=== PATIENT | female | born 1970 | race Caucasian/White ===

== ENCOUNTER 2021-12-27 17:47 | Inpatient (IN) | payer OTHER ==
[2021-12-27 19:17] VITALS: BMI 27.8
[2021-12-27] MEDS ORDERED: NICOTINE POLACRILEX 2 MG GUM BUC PRN (21:20)
[2021-12-27] MEDS ORDERED: MENTHOL/PHENOL 1 EACH UD MM PRN (21:20)
[2021-12-27] MEDS ORDERED: BISMUTH SUBSALICYLATE 524 MG/30 ML PO PRN (21:20)
[2021-12-27] MEDS ORDERED: ONDANSETRON *ODT* 4 MG TABLET SL PRN (21:20)
[2021-12-27] MEDS ORDERED: guaiFENesin 200 MG/10 ML 10 ML UNIT-DOSE CUPS PO PRN (21:20)
[2021-12-27] MEDS ORDERED: MAGNESIUM HYDROX 2400MG/30ML ORAL SUSPENSION 30 ML CUP PO PRN (21:20)
[2021-12-27] MEDS ORDERED: IBUPROFEN 400 MG TABLET (FP) PO PRN (21:20)
[2021-12-27] MEDS ORDERED: ACETAMINOPHEN 325 MG TABLET (FP) PO PRN ×2 (21:20)
[2021-12-27] MEDS ORDERED: MAGNESIUM CITRATE 300 ML BOTTLE PO PRN (21:20)
[2021-12-27] MEDS ORDERED: MAG HYDROX/AL HYDROX/SIMETH 30 ML UNIT-DOSE CUP PO PRN (21:20)
[2021-12-27] MEDS ORDERED: NICOTINE 10 MG CARTRIDGE (INHALER) IH PRN (21:20)
[2021-12-28] MEDS ORDERED: diazePAM 5 MG TABLET ONE (01:42)
[2021-12-28] MEDS: THIAMINE HCL 100 MG TABLET (FP) PO SCH ×2 (01:46→22:59)
[2021-12-28] MEDS: diazePAM 5 MG TABLET PO SCH ×5 (01:46→22:59)
[2021-12-28] MEDS: METHOCARBAMOL 500 MG TABLET PO PRN (02:25)
[2021-12-28] MEDS ORDERED: methaDONE HCL 40 MG DISPERSABLE TABLET PO ONE (09:16)
[2021-12-28] MEDS ORDERED: cloNIDine HCL 0.1 MG TABLET PO PRN (09:25)
[2021-12-28 10:15] LABS: HEMOGLOBIN 11.3 GM/dL (10.7-15.3); MCH 23.8 pg (25.7-33.7); MCHC 31.3 g/dl (32.0-36.0); MEAN PLT VOLUME 8.8 fl (7.5-11.1); PLATELET COUNT 224 10^3/uL (134-434); RBC 4.74 M/mm3 (3.60-5.2); RDW 15.3 % (11.6-15.6); WHITE BLOOD COUNT 6.9 K/mm3 (4.0-10.0)
[2021-12-28] MEDS: PRENATAL VITAMINS W/ FOLIC ACID TABLET (FP) PO SCH (10:21)
[2021-12-28 10:22] LABS: ALBUMIN 3.5 g/dl (3.4-5.0); BLOOD UREA NITROGEN 12.6 mg/dL (7-18)
[2021-12-28 10:25] LABS: CREATININE 0.8 mg/dL (0.55-1.3)
[2021-12-28 10:27] LABS: BILIRUBIN,TOTAL 0.3 mg/dL (0.2-1); TOT PROT 7.1 g/dl (6.4-8.2)
[2021-12-28] MEDS ORDERED: FLU VACC QS2021-22(6MOS UP)/PF 60 MCG/0.5 ML SYRINGE IM ONE (12:00)
[2021-12-28] MEDS: hydrOXYzine PAMOATE 25 MG CAPSULE (FP) PO PRN (18:17)
[2021-12-28] MEDS: MELATONIN 5 MG TABLETS PO PRN (22:59)
[2021-12-29] MEDS: diazePAM 5 MG TABLET PO SCH ×3 (06:40→22:46)
[2021-12-29] MEDS: methaDONE HCL 40 MG DISPERSABLE TABLET PO SCH (06:40)
[2021-12-29] MEDS: diazePAM 5 MG TABLET PO PRN (10:23)
[2021-12-29] MEDS: PRENATAL VITAMINS W/ FOLIC ACID TABLET (FP) PO SCH (10:23)
[2021-12-29] MEDS: THIAMINE HCL 100 MG TABLET (FP) PO SCH (22:46)
[2021-12-29] MEDS: MELATONIN 5 MG TABLETS PO PRN (22:46)
[2021-12-30] MEDS: METHOCARBAMOL 500 MG TABLET PO PRN (00:04)
[2021-12-30 06:07] LABS: SARS-CoV-2 NAA Not Detected (Not Detected)
[2021-12-30] MEDS: methaDONE HCL 40 MG DISPERSABLE TABLET PO SCH (06:46)
[2021-12-30] MEDS: diazePAM 5 MG TABLET PO SCH ×2 (06:46→17:46)
[2021-12-30] MEDS: PRENATAL VITAMINS W/ FOLIC ACID TABLET (FP) PO SCH (10:47)
[2021-12-30] MEDS: diazePAM 5 MG TABLET PO PRN (11:05)
[2021-12-30] MEDS: hydrOXYzine PAMOATE 25 MG CAPSULE (FP) PO PRN (17:47)
[2021-12-30] MEDS: THIAMINE HCL 100 MG TABLET (FP) PO SCH (22:24)
[2021-12-31] MEDS ORDERED: diazePAM 5 MG TABLET PO ONE (06:00)
[2021-12-31] MEDS: methaDONE HCL 40 MG DISPERSABLE TABLET PO SCH (06:43)
[2021-12-31 10:00] VITALS: BP 139/92; PULSE 87; TEMP 97.1
[2021-12-31] MEDS: PRENATAL VITAMINS W/ FOLIC ACID TABLET (FP) PO SCH (11:20)
[2021-12-31 14:11] LABS: SARS-CoV-2 NAA Not Detected (Not Detected)
== END 2021-12-31 09:44 | disposition home or self-care (01) | DRG 773 ==
LOC: YASAS 17:47 → Y3N 23:19
PROVIDERS: ADMIT Allergy & Immunology; ATTEND Allergy & Immunology
PROC: HZ2ZZZZ Detoxification Services for Substance Abuse Treatment (ICD-10-PCS; principal; 2021-12-27)
DX: F10.230 Alcohol dependence with withdrawal, uncomplicated (principal); F11.20 Opioid dependence, uncomplicated; F14.20 Cocaine dependence, uncomplicated; F17.210 Nicotine dependence, cigarettes, uncomplicated; I10 Essential (primary) hypertension; J45.909 Unspecified asthma, uncomplicated
CPT/HCPCS: 36415; 80053; 85027; 86780; C9803; J0735; U0003; U0005

== ENCOUNTER 2022-01-13 10:50 | Inpatient (IN) | payer OTHER ==
[2022-01-13] MEDS ORDERED: chlordiazePOXIDE HCL 25 MG CAPSULE PO PRN (11:29)
[2022-01-13] MEDS ORDERED: MENTHOL/PHENOL 1 EACH UD MM PRN (11:29)
[2022-01-13] MEDS ORDERED: NICOTINE 10 MG CARTRIDGE (INHALER) IH PRN (11:29)
[2022-01-13] MEDS ORDERED: ACETAMINOPHEN 325 MG TABLET (FP) PO PRN ×2 (11:29)
[2022-01-13] MEDS ORDERED: LOPERAMIDE HCL 2 MG CAPSULE PO PRN (11:29)
[2022-01-13] MEDS ORDERED: MAG HYDROX/AL HYDROX/SIMETH 30 ML UNIT-DOSE CUP PO PRN (11:29)
[2022-01-13] MEDS ORDERED: MAGNESIUM HYDROX 2400MG/30ML ORAL SUSPENSION 30 ML CUP PO PRN (11:29)
[2022-01-13] MEDS ORDERED: MAGNESIUM CITRATE 300 ML BOTTLE PO PRN (11:29)
[2022-01-13] MEDS ORDERED: ONDANSETRON *ODT* 4 MG TABLET SL PRN (11:29)
[2022-01-13] MEDS ORDERED: IBUPROFEN 400 MG TABLET (FP) PO PRN (11:29)
[2022-01-13] MEDS ORDERED: BISMUTH SUBSALICYLATE 524 MG/30 ML PO PRN (11:29)
[2022-01-13 11:41] VITALS: BMI 36.8
[2022-01-13] MEDS: NICOTINE 14 MG/24 HOURS TOPICAL PATCH TD SCH (13:56)
[2022-01-13] MEDS: hydrOXYzine PAMOATE 25 MG CAPSULE (FP) PO SCH ×3 (13:56→23:06)
[2022-01-13] MEDS: PRENATAL VITAMINS W/ FOLIC ACID TABLET (FP) PO SCH (13:56)
[2022-01-13] MEDS: chlordiazePOXIDE HCL 25 MG CAPSULE PO SCH ×3 (13:57→22:52)
[2022-01-13] MEDS: GABAPENTIN 300 MG CAPSULE PO SCH ×2 (14:53→22:52)
[2022-01-13] MEDS ORDERED: ALBUTEROL SO4 HFA INHALER IH PRN (19:21)
[2022-01-13] MEDS: MELATONIN 5 MG TABLETS PO SCH (22:52)
[2022-01-13] MEDS: THIAMINE HCL 100 MG TABLET (FP) PO SCH (22:52)
[2022-01-13] MEDS: METHOCARBAMOL 500 MG TABLET PO PRN (22:53)
[2022-01-14] MEDS: hydrOXYzine PAMOATE 25 MG CAPSULE (FP) PO SCH ×5 (06:42→22:36)
[2022-01-14] MEDS: chlordiazePOXIDE HCL 25 MG CAPSULE PO SCH ×4 (06:42→22:36)
[2022-01-14] MEDS: GABAPENTIN 300 MG CAPSULE PO SCH ×3 (06:42→22:37)
[2022-01-14] MEDS ORDERED: ATOMOXETINE HCL 40 MG CAPSULE PO SCH (10:00)
[2022-01-14] MEDS ORDERED: methaDONE HCL 10 MG TABLET PO SCH (10:15)
[2022-01-14] MEDS: NICOTINE 14 MG/24 HOURS TOPICAL PATCH TD SCH (10:34)
[2022-01-14] MEDS: LISINOPRIL 10 MG TABLET PO SCH (10:34)
[2022-01-14] MEDS: PRENATAL VITAMINS W/ FOLIC ACID TABLET (FP) PO SCH (10:34)
[2022-01-14] MEDS: ATOMOXETINE HCL 25 MG CAPSULE PO SCH (10:35)
[2022-01-14] MEDS: methaDONE 40 MG, methaDONE 30 MG PO SCH (10:36)
[2022-01-14] MEDS ORDERED: methaDONE HCL 40 MG DISPERSABLE TABLET ONE (10:36)
[2022-01-14] MEDS ORDERED: methaDONE HCL 10 MG TABLET ONE (10:36)
[2022-01-14] MEDS: MELATONIN 5 MG TABLETS PO SCH (22:36)
[2022-01-14] MEDS: METHOCARBAMOL 500 MG TABLET PO PRN (22:37)
[2022-01-14] MEDS: THIAMINE HCL 100 MG TABLET (FP) PO SCH (22:37)
[2022-01-15] MEDS ORDERED: methaDONE HCL 10 MG TABLET ONE (05:13)
[2022-01-15] MEDS ORDERED: methaDONE HCL 40 MG DISPERSABLE TABLET ONE (05:14)
[2022-01-15] MEDS: methaDONE 40 MG, methaDONE 30 MG PO SCH (06:38)
[2022-01-15] MEDS: GABAPENTIN 300 MG CAPSULE PO SCH ×3 (06:38→22:20)
[2022-01-15] MEDS: chlordiazePOXIDE HCL 25 MG CAPSULE PO SCH ×4 (06:38→22:20)
[2022-01-15] MEDS: hydrOXYzine PAMOATE 25 MG CAPSULE (FP) PO SCH ×5 (07:05→22:20)
[2022-01-15] MEDS: NICOTINE 14 MG/24 HOURS TOPICAL PATCH TD SCH (10:42)
[2022-01-15] MEDS: LISINOPRIL 10 MG TABLET PO SCH (10:42)
[2022-01-15] MEDS: ATOMOXETINE HCL 25 MG CAPSULE PO SCH (10:42)
[2022-01-15] MEDS: PRENATAL VITAMINS W/ FOLIC ACID TABLET (FP) PO SCH (10:42)
[2022-01-15 14:06] LABS: SARS-CoV-2 NAA Not Detected (Not Detected)
[2022-01-15] MEDS: MELATONIN 5 MG TABLETS PO SCH (22:20)
[2022-01-15] MEDS: THIAMINE HCL 100 MG TABLET (FP) PO SCH (22:21)
[2022-01-15] MEDS: METHOCARBAMOL 500 MG TABLET PO PRN (22:21)
[2022-01-16] MEDS ORDERED: chlordiazePOXIDE HCL 10 MG CAPSULE PO PRN
[2022-01-16] MEDS ORDERED: methaDONE HCL 10 MG TABLET ONE (04:55)
[2022-01-16] MEDS ORDERED: methaDONE HCL 40 MG DISPERSABLE TABLET ONE (04:55)
[2022-01-16] MEDS: hydrOXYzine PAMOATE 25 MG CAPSULE (FP) PO SCH ×5 (06:27→22:31)
[2022-01-16] MEDS: chlordiazePOXIDE HCL 10 MG CAPSULE PO SCH ×4 (06:27→22:31)
[2022-01-16] MEDS: GABAPENTIN 300 MG CAPSULE PO SCH ×3 (06:28→22:31)
[2022-01-16] MEDS: methaDONE 40 MG, methaDONE 30 MG PO SCH (06:29)
[2022-01-16] MEDS: NICOTINE 14 MG/24 HOURS TOPICAL PATCH TD SCH (10:25)
[2022-01-16] MEDS: PRENATAL VITAMINS W/ FOLIC ACID TABLET (FP) PO SCH (10:25)
[2022-01-16] MEDS: LISINOPRIL 10 MG TABLET PO SCH (10:25)
[2022-01-16] MEDS: ATOMOXETINE HCL 25 MG CAPSULE PO SCH (10:28)
[2022-01-16 10:53] LABS: HEMATOCRIT 36.9 % (32.4-45.2); HEMOGLOBIN 11.3 GM/dL (10.7-15.3); MCH 23.6 pg (25.7-33.7); MCHC 30.6 g/dl (32.0-36.0); MEAN CELL VOLUME 77.2 fl (80-96); MEAN PLT VOLUME 8.9 fl (7.5-11.1); PLATELET COUNT 262 10^3/uL (134-434); RBC 4.78 M/mm3 (3.60-5.2); RDW 15.7 % (11.6-15.6); WHITE BLOOD COUNT 6.1 K/mm3 (4.0-10.0)
[2022-01-16 10:59] LABS: BLOOD UREA NITROGEN 9.5 mg/dL (7-18)
[2022-01-16 11:00] LABS: ALBUMIN 3.4 g/dl (3.4-5.0); CALCIUM 9.3 mg/dL (8.5-10.1)
[2022-01-16 11:01] LABS: CREATININE 0.8 mg/dL (0.55-1.3)
[2022-01-16 11:03] LABS: BILIRUBIN,TOTAL 0.2 mg/dL (0.2-1)
[2022-01-16] MEDS: THIAMINE HCL 100 MG TABLET (FP) PO SCH (22:31)
[2022-01-16] MEDS: MELATONIN 5 MG TABLETS PO SCH (22:31)
[2022-01-17] MEDS ORDERED: methaDONE HCL 40 MG DISPERSABLE TABLET ONE (03:50)
[2022-01-17] MEDS ORDERED: methaDONE HCL 10 MG TABLET ONE (03:50)
[2022-01-17] MEDS: chlordiazePOXIDE HCL 10 MG CAPSULE PO SCH ×2 (06:01→17:53)
[2022-01-17] MEDS: GABAPENTIN 300 MG CAPSULE PO SCH ×3 (06:01→22:40)
[2022-01-17] MEDS: methaDONE 40 MG, methaDONE 30 MG PO SCH (06:01)
[2022-01-17] MEDS: hydrOXYzine PAMOATE 25 MG CAPSULE (FP) PO SCH ×5 (06:02→22:40)
[2022-01-17] MEDS: NICOTINE 14 MG/24 HOURS TOPICAL PATCH TD SCH (10:43)
[2022-01-17] MEDS: PRENATAL VITAMINS W/ FOLIC ACID TABLET (FP) PO SCH (10:44)
[2022-01-17] MEDS: LISINOPRIL 10 MG TABLET PO SCH (10:45)
[2022-01-17] MEDS: ATOMOXETINE HCL 25 MG CAPSULE PO SCH (10:45)
[2022-01-17] MEDS: THIAMINE HCL 100 MG TABLET (FP) PO SCH (22:40)
[2022-01-17] MEDS: MELATONIN 5 MG TABLETS PO SCH (22:40)
[2022-01-17] MEDS: METHOCARBAMOL 500 MG TABLET PO PRN (22:40)
[2022-01-18] MEDS ORDERED: methaDONE HCL 10 MG TABLET ONE (04:19)
[2022-01-18] MEDS ORDERED: methaDONE HCL 40 MG DISPERSABLE TABLET ONE (04:20)
[2022-01-18] MEDS ORDERED: chlordiazePOXIDE HCL 10 MG CAPSULE PO ONE (05:00)
[2022-01-18] MEDS: hydrOXYzine PAMOATE 25 MG CAPSULE (FP) PO SCH ×2 (05:44→09:38)
[2022-01-18] MEDS: methaDONE 40 MG, methaDONE 30 MG PO SCH (05:44)
[2022-01-18] MEDS: GABAPENTIN 300 MG CAPSULE PO SCH (05:44)
[2022-01-18 08:55] VITALS: BP 100/60; PULSE 88; TEMP 98.2
[2022-01-18] MEDS: LISINOPRIL 10 MG TABLET PO SCH (09:38)
[2022-01-18] MEDS: ATOMOXETINE HCL 25 MG CAPSULE PO SCH (09:40)
== END 2022-01-18 09:50 | disposition home or self-care (01) | DRG 773 ==
LOC: YASAS 10:50 → Y3N 12:18
PROVIDERS: ADMIT Allergy & Immunology; ATTEND Allergy & Immunology
PROC: HZ2ZZZZ Detoxification Services for Substance Abuse Treatment (ICD-10-PCS; principal; 2022-01-13)
DX: F10.230 Alcohol dependence with withdrawal, uncomplicated (principal); F11.20 Opioid dependence, uncomplicated; F14.90 Cocaine use, unspecified, uncomplicated; F17.210 Nicotine dependence, cigarettes, uncomplicated; F19.282 Other psychoactive substance dependence with psychoactive substance-induced sleep disorder; F19.280 Other psychoactive substance dependence with psychoactive substance-induced anxiety disorder; F33.9 Major depressive disorder, recurrent, unspecified; F43.10 Post-traumatic stress disorder, unspecified; F90.9 Attention-deficit hyperactivity disorder, unspecified type; I10 Essential (primary) hypertension; M54.59 Other low back pain; G89.29 Other chronic pain; Z86.69 Personal history of other diseases of the nervous system and sense organs; Z56.0 Unemployment, unspecified
CPT/HCPCS: 36415; 80053; 81025; 85027; 86780; C9803; Q0162; U0003; U0005

== ENCOUNTER 2023-05-23 10:03 | Inpatient (IN) | payer OTHER ==
[2023-05-23 10:26] VITALS: BMI 34.0
[2023-05-23] MEDS ORDERED: IBUPROFEN 400 MG TABLET (FP) PO PRN (11:15)
[2023-05-23] MEDS ORDERED: NICOTINE 10 MG CARTRIDGE (INHALER) IH PRN (11:15)
[2023-05-23] MEDS ORDERED: BISMUTH SUBSALICYLATE 262 MG/15 ML BTL PO PRN (11:15)
[2023-05-23] MEDS ORDERED: POLYETHYLENE GLYCOL (HEALTHYLAX) 3350 17 GM PACKET PO PRN (11:15)
[2023-05-23] MEDS ORDERED: ACETAMINOPHEN 325 MG TABLET (FP) PO PRN (11:15)
[2023-05-23] MEDS ORDERED: DICYCLOMINE HCL 10 MG CAPSULE PO PRN (11:15)
[2023-05-23] MEDS ORDERED: MAGNESIUM HYDROX 2400MG/30ML ORAL SUSPENSION 30 ML CUP PO PRN (11:15)
[2023-05-23] MEDS ORDERED: NALOXONE HCL (KLOXXADO) 8 MG SPRAY NS PRN (11:15)
[2023-05-23] MEDS ORDERED: BENZONATATE 200 MG CAPSULE PO PRN (11:15)
[2023-05-23] MEDS ORDERED: guaiFENesin 600 MG TABLET.ER (FP) PO PRN (11:15)
[2023-05-23] MEDS ORDERED: LOPERAMIDE HCL 2 MG CAPSULE PO PRN (11:15)
[2023-05-23] MEDS ORDERED: BENZOCAINE/MENTHOL (CHLORASEPTIC ) LOZENGE MM PRN (11:15)
[2023-05-23] MEDS ORDERED: ONDANSETRON *ODT* 4 MG TABLET SL PRN (11:15)
[2023-05-23] MEDS ORDERED: MAG HYDROX/AL HYDROX/SIMETH 30 ML UNIT-DOSE CUP PO PRN (11:15)
[2023-05-23] MEDS ORDERED: IBUPROFEN 600 MG TABLET (FP) PO PRN (11:15)
[2023-05-23] MEDS ORDERED: NALOXONE HCL 0.4 MG/ML VIAL IM PRN (11:15)
[2023-05-23] MEDS ORDERED: ALBUTEROL SO4 HFA INHALER IH PRN (11:18)
[2023-05-23] MEDS ORDERED: chlordiazePOXIDE HCL 25 MG CAPSULE PO PRN (12:03)
[2023-05-23] MEDS ORDERED: diazePAM 5 MG TABLET PO PRN (12:03)
[2023-05-23] MEDS ORDERED: BUPRENORPHINE HCL 150 MCG, BUPRENORPHINE HCL 75 MCG BC PRN (12:03)
[2023-05-23] MEDS ORDERED: BUPRENORPHINE HCL 150 MCG, BUPRENORPHINE HCL 75 MCG BC ONE (12:30)
[2023-05-23] MEDS ORDERED: cloNIDine HCL 0.1 MG TABLET PO ONE (13:30)
[2023-05-23 15:50] LABS: HEMATOCRIT 38.8 % (32.4-45.2); HEMOGLOBIN 12.1 GM/dL (10.7-15.3); MCH 23.3 pg (25.7-33.7); MCHC 31.2 g/dl (32.0-36.0); MEAN CELL VOLUME 74.7 fl (80-96); MEAN PLT VOLUME 9.1 fl (7.5-11.1); PLATELET COUNT 278 10^3/uL (134-434); RBC 5.19 M/mm3 (3.60-5.2); WHITE BLOOD COUNT 7.3 K/mm3 (4.0-10.0)
[2023-05-23] MEDS ORDERED: cloNIDine HCL 0.1 MG TABLET PO PRN (16:04)
[2023-05-23 16:08] LABS: POTASSIUM 4.2 mmol/L (3.5-5.1)
[2023-05-23 16:12] LABS: ALBUMIN 3.8 g/dl (3.4-5.0); BLOOD UREA NITROGEN 12.8 mg/dL (7-18)
[2023-05-23 16:15] LABS: CREATININE 0.8 mg/dL (0.55-1.3)
[2023-05-23 16:17] LABS: BILIRUBIN,TOTAL 0.3 mg/dL (0.2-1); TOT PROT 7.5 g/dl (6.4-8.2)
[2023-05-23] MEDS: chlordiazePOXIDE HCL 25 MG CAPSULE PO SCH ×2 (17:21→22:27)
[2023-05-23] MEDS: MELATONIN 5 MG TABLETS PO SCH (22:26)
[2023-05-23] MEDS: THIAMINE HCL 100 MG TABLET (FP) PO SCH (22:26)
[2023-05-24] MEDS ORDERED: BUPRENORPHINE HCL 150 MCG, BUPRENORPHINE HCL 75 MCG BC PRN
[2023-05-24] MEDS: chlordiazePOXIDE HCL 25 MG CAPSULE PO SCH ×4 (05:28→22:31)
[2023-05-24] MEDS ORDERED: BUPRENORPHINE HCL 150 MCG, BUPRENORPHINE HCL 75 MCG BC SCH (06:00)
[2023-05-24] MEDS ORDERED: ALBUTEROL SO4 HFA INHALER IH PRN (08:44)
[2023-05-24] MEDS ORDERED: ALBUTEROL SO4 0.083% IH SOL 2.5 MG/3 ML VIAL.NEB. NEB PRN (08:44)
[2023-05-24] MEDS: LISINOPRIL 10 MG TABLET PO SCH (10:36)
[2023-05-24] MEDS: BUDESONIDE/FORMETEROL FUMARATE 160/4.5 mcg INHALER IH SCH ×2 (10:37→22:32)
[2023-05-24] MEDS: PRENATAL VITAMINS W/ FOLIC ACID TABLET (FP) PO SCH (10:44)
[2023-05-24] MEDS: NICOTINE 14 MG/24 HOURS TOPICAL PATCH TD SCH (10:44)
[2023-05-24] MEDS ORDERED: cloNIDine HCL 0.1 MG TABLET PO PRN (13:05)
[2023-05-24] MEDS: METHOCARBAMOL 500 MG TABLET PO PRN ×2 (13:32→22:31)
[2023-05-24] MEDS ORDERED: methaDONE HCL 10 MG TABLET (FOR DETOX USE ONLY) PO ONE (13:45)
[2023-05-24 21:14] VITALS: RESP 18
[2023-05-24] MEDS: MELATONIN 5 MG TABLETS PO SCH (22:31)
[2023-05-24] MEDS: THIAMINE HCL 100 MG TABLET (FP) PO SCH (22:33)
[2023-05-25] MEDS ORDERED: chlordiazePOXIDE HCL 25 MG CAPSULE PO SCH (05:00)
[2023-05-25] MEDS ORDERED: BUPRENORPHINE HCL 450 MCG FILM BC SCH (06:00)
[2023-05-25 06:45] VITALS: BP 131/86; PULSE 64; TEMP 97.5
[2023-05-25] MEDS: LISINOPRIL 10 MG TABLET PO SCH (09:15)
[2023-05-25] MEDS: BUDESONIDE/FORMETEROL FUMARATE 160/4.5 mcg INHALER IH SCH (09:15)
[2023-05-25] MEDS: NICOTINE 14 MG/24 HOURS TOPICAL PATCH TD SCH (09:15)
[2023-05-25] MEDS: PRENATAL VITAMINS W/ FOLIC ACID TABLET (FP) PO SCH (09:16)
[2023-05-26] MEDS ORDERED: chlordiazePOXIDE HCL 10 MG CAPSULE PO PRN
[2023-05-26] MEDS ORDERED: chlordiazePOXIDE HCL 10 MG CAPSULE PO SCH (05:00)
[2023-05-26] MEDS ORDERED: BUPRENORPHINE/NALOXONE 4 MG/1 MG FILM PACKET SL SCH (06:00)
[2023-05-26] MEDS ORDERED: methaDONE HCL 10 MG TABLET (FOR DETOX USE ONLY) PO ONE (10:00)
[2023-05-27] MEDS ORDERED: chlordiazePOXIDE HCL 10 MG CAPSULE PO SCH (05:00)
[2023-05-27] MEDS ORDERED: BUPRENORPHINE/NALOXONE 8 MG/2 MG FILM PACKET SL ONE (06:00)
[2023-05-28] MEDS ORDERED: chlordiazePOXIDE HCL 10 MG CAPSULE PO ONE (05:00)
[2023-05-28] MEDS ORDERED: methaDONE HCL 10 MG TABLET (FOR DETOX USE ONLY) PO ONE (10:00)
== END 2023-05-25 09:01 | disposition left against medical advice (07) | DRG 770 ==
LOC: YASAS 10:03 → Y6N 11:37 → UNDOADMIN 11:37 → Y6N 05-24 17:33 → UNDODISIN 05-25 09:01
PROVIDERS: ADMIT Allergy & Immunology; ATTEND Surgery
PROC: HZ2ZZZZ Detoxification Services for Substance Abuse Treatment (ICD-10-PCS; principal; 2023-05-23)
DX: F10.230 Alcohol dependence with withdrawal, uncomplicated (principal); F11.20 Opioid dependence, uncomplicated; F13.230 Sedative, hypnotic or anxiolytic dependence with withdrawal, uncomplicated; F19.280 Other psychoactive substance dependence with psychoactive substance-induced anxiety disorder; F19.282 Other psychoactive substance dependence with psychoactive substance-induced sleep disorder; F43.10 Post-traumatic stress disorder, unspecified; D64.9 Anemia, unspecified; I10 Essential (primary) hypertension; J45.909 Unspecified asthma, uncomplicated; Z20.822 Contact with and (suspected) exposure to COVID-19; Z88.6 Allergy status to analgesic agent
CPT/HCPCS: 36415; 80053; 83036; 85027; 86780; 87635; 87811; 94640

== ENCOUNTER 2024-06-10 12:29 | Inpatient (IN) | payer OTHER ==
[2024-06-10 13:32] VITALS: BMI 32.1
[2024-06-10] MEDS: cloNIDine HCL 0.1 MG TABLET PO ONE (14:45)
[2024-06-10] MEDS ORDERED: ACETAMINOPHEN 325 MG TABLET (FP) PO PRN (15:14)
[2024-06-10] MEDS ORDERED: guaiFENesin 600 MG TABLET.ER (FP) PO PRN (15:14)
[2024-06-10] MEDS ORDERED: ONDANSETRON *ODT* 4 MG TABLET SL PRN (15:14)
[2024-06-10] MEDS ORDERED: IBUPROFEN 400 MG TABLET (FP) PO PRN (15:14)
[2024-06-10] MEDS ORDERED: DICYCLOMINE HCL 10 MG CAPSULE PO PRN (15:14)
[2024-06-10] MEDS ORDERED: POLYETHYLENE GLYCOL (HEALTHYLAX) 3350 17 GM PACKET PO PRN (15:14)
[2024-06-10] MEDS ORDERED: BENZONATATE 200 MG CAPSULE PO PRN (15:14)
[2024-06-10] MEDS ORDERED: MAGNESIUM HYDROX 2400MG/30ML ORAL SUSPENSION 30 ML CUP PO PRN (15:14)
[2024-06-10] MEDS ORDERED: NALOXONE HCL 0.4 MG/ML VIAL IM PRN (15:14)
[2024-06-10] MEDS ORDERED: MAG HYDROX/AL HYDROX/SIMETH 30 ML UNIT-DOSE CUP PO PRN (15:14)
[2024-06-10] MEDS ORDERED: IBUPROFEN 600 MG TABLET (FP) PO PRN (15:14)
[2024-06-10] MEDS ORDERED: NICOTINE POLACRILEX 4 MG GUM BUC PRN (15:14)
[2024-06-10] MEDS ORDERED: BENZOCAINE/MENTHOL (CHLORASEPTIC ) LOZENGE MM PRN (15:14)
[2024-06-10] MEDS ORDERED: LOPERAMIDE HCL 2 MG CAPSULE PO PRN (15:14)
[2024-06-10] MEDS ORDERED: NALOXONE (NARCAN) HCL 4 MG/0.1 ML SPRAY NS PRN (15:14)
[2024-06-10] MEDS ORDERED: chlordiazePOXIDE HCL 25 MG CAPSULE PO PRN (15:19)
[2024-06-10] MEDS: chlordiazePOXIDE HCL 25 MG CAPSULE PO SCH (17:59)
[2024-06-10] MEDS: MELATONIN 5 MG TABLETS PO SCH (22:11)
[2024-06-10] MEDS: THIAMINE 100 MG TABLET PO SCH (22:12)
[2024-06-10] MEDS: METHOCARBAMOL 500 MG TABLET PO PRN (23:13)
[2024-06-11] MEDS: methaDONE 80 MG, methaDONE 20 MG PO SCH (10:16)
[2024-06-11] MEDS: PRENATAL VITAMINS W/ FOLIC ACID TABLET (FP) PO SCH (10:17)
[2024-06-11] MEDS: LISINOPRIL 10 MG TABLET PO SCH (10:17)
[2024-06-11] MEDS: NICOTINE 14 MG/24 HOURS TOPICAL PATCH TD SCH (10:18)
[2024-06-11] MEDS: methaDONE HCL 10 MG TABLET PO ONE (10:23)
[2024-06-11 12:04] LABS: HEMATOCRIT 40.8 % (32.4-45.2); HEMOGLOBIN 12.7 GM/dL (10.7-15.3); MCH 23.6 pg (25.7-33.7); MCHC 31.1 g/dl (32.0-36.0); MEAN PLT VOLUME 8.4 fl (7.5-11.1); PLATELET COUNT 184 10^3/uL (134-434); RBC 5.37 M/mm3 (3.60-5.2); WHITE BLOOD COUNT 5.2 K/mm3 (4.0-10.0)
[2024-06-11 12:57] LABS: CHLORIDE 102 mmol/L (98-107); POTASSIUM 3.6 mmol/L (3.5-5.1); SODIUM 137 mmol/L (136-145)
[2024-06-11 13:02] LABS: ALBUMIN 3.5 g/dl (3.4-5.0); ANION GAP 9 mmol/L (4-13); CO2 26 mmol/L (21-32)
[2024-06-11 13:03] LABS: BLOOD UREA NITROGEN 25.3 mg/dL (7-18); GLUCOSE,RANDOM 153 mg/dL (74-106)
[2024-06-11 13:05] LABS: SGPT/ALT 17 U/L (13-61)
[2024-06-11 13:06] LABS: CREATININE 0.9 mg/dL (0.55-1.3); SGOT/AST 13 U/L (15-37)
[2024-06-11 13:07] LABS: BILIRUBIN,TOTAL 0.3 mg/dL (0.2-1); TOT PROT 6.7 g/dl (6.4-8.2)
[2024-06-11 13:08] LABS: ALK PHOS 118 U/L (45-117)
[2024-06-11] MEDS: GABAPENTIN 300 MG CAPSULE PO SCH (13:34)
[2024-06-11 14:38] LABS: HIV INTERPRETATION NEGATIVE (NEGATIVE)
[2024-06-12] MEDS: chlordiazePOXIDE HCL 25 MG CAPSULE PO SCH (05:20)
[2024-06-12] MEDS ORDERED: methaDONE HCL 10 MG TABLET PO SCH (06:00)
[2024-06-12] MEDS: ALBUTEROL SO4 HFA INHALER IH PRN (17:50)
[2024-06-13] MEDS ORDERED: chlordiazePOXIDE HCL 10 MG CAPSULE PO PRN
[2024-06-13] MEDS: chlordiazePOXIDE HCL 10 MG CAPSULE PO SCH (05:56)
[2024-06-13] MEDS: hydrOXYzine PAMOATE 25 MG CAPSULE (FP) PO PRN (11:02)
[2024-06-13] MEDS: BISMUTH SUBSALICYLATE 524 MG/30 ML PO PRN (11:04)
[2024-06-14] MEDS: chlordiazePOXIDE HCL 10 MG CAPSULE PO SCH (05:55)
[2024-06-14] MEDS: cloNIDine HCL 0.1 MG TABLET PO ONE (21:19)
[2024-06-14 22:48] VITALS: RESP 16
[2024-06-15] MEDS: chlordiazePOXIDE HCL 10 MG CAPSULE PO ONE (05:25)
[2024-06-15 09:54] VITALS: BP 116/73; PULSE 74; TEMP 97.6
[2024-06-15] MEDS ORDERED: LISINOPRIL 10 MG TABLET PO SCH (10:25)
[2024-06-16] MEDS ORDERED: LISINOPRIL 20 MG TABLET PO SCH (10:00)
== END 2024-06-15 11:02 | disposition home or self-care (01) | DRG 773 ==
LOC: YASAS 12:29 → Y6N 15:30
PROVIDERS: ADMIT Allergy & Immunology; ATTEND Surgery
PROC: HZ2ZZZZ Detoxification Services for Substance Abuse Treatment (ICD-10-PCS; principal; 2024-06-10)
DX: F10.230 Alcohol dependence with withdrawal, uncomplicated (principal); F11.20 Opioid dependence, uncomplicated; F14.20 Cocaine dependence, uncomplicated; F17.210 Nicotine dependence, cigarettes, uncomplicated; G62.9 Polyneuropathy, unspecified; F41.9 Anxiety disorder, unspecified; I10 Essential (primary) hypertension; J45.909 Unspecified asthma, uncomplicated; M54.50 Low back pain, unspecified; G89.29 Other chronic pain; Z99.89 Dependence on other enabling machines and devices; Z88.6 Allergy status to analgesic agent
CPT/HCPCS: 36415; 80053; 80305; 80307; 81025; 82947; 83036; 84520; 85027; 86780; 86803; 87389; 87522; 93005; 93010